=== PATIENT | female | born 1965 | race Caucasian/White ===

== ENCOUNTER → 2018-11-03 | Outpatient (CLI) | payer OTHER ==
--- NOTE | 2018-11-03 09:52 | PCVCIMAG ---
APPROVED REPORT Study performed: 11/03/2018 08:52:28 EXAM: Comprehensive 2D, Doppler, and color-flow Echocardiogram Patient Location: Echo lab Room #: 2Status: routine BSA: 2.02 HR: 64 bpmBP: 126/74 mmHg Rhythm: NSR Other Information Study Quality: Good Risk Factors: Cardiac Risk Factors: HTN Indications Cardiomyopathy Hypertension/HDD NICM,LUPUS 2D Dimensions IVSd: 8.62 (7-11mm)LVOT Diam: 22.22 (18-24mm) LVDd: 63.59 mm PWd: 8.77 (7-11mm)Ascending Ao: 29.37 (22-36mm) LVDs: 55.01 (25-40mm) Left Atrium: 37.18 (27-40mm) Aortic Root: 25.73 mm LV Single Plane 4CH: 33.90 % LV Single Plane 2CH: 32.52 % Biplane EF: 35.0 % Volumes Left Atrial Volume (Systole) Single Plane 4CH: 128.39 mLSingle Plane 2CH: 79.33 mL Biplane LA Volume: 111.00 mLLA ESV Index: 55.00 mL/m2 Aortic Valve AoV Peak Saúl.: 1.19 m/s AO Peak Gr.: 5.65 mmHgLVOT Max P.58 mmHg LVOT Max V: 0.63 m/s TESHA Vmax: 2.05 cm2 Mitral Valve E/A Ratio: 3.0 MV Decel. Time: 152.62 ms MV E Max Saúl.: 1.08 m/s MV A Saúl.: 0.36 m/s IVRT: 131.49 ms TDI E/Lateral E': 15.43E/Medial E': 15.43 Medial E' Saúl.: 0.07 m/s Lateral E' Saúl.: 0.07 m/s Pulmonary Valve PV Peak Saúl.: 0.78 m/sPV Peak Gr.: 2.46 mmHg Tricuspid Valve TR Peak Saúl.: 2.06 m/s TR Peak Gr.: 16.98 mmHg TV Vmax: 0.57 m/sPA Pressure: 24.00 mmHg Left Ventricle The left ventricle is normal size. There is normal left ventricular wall thickness. Left ventricular systolic function is moderate to severely decreased. LVEF is 35-40%. Grade III - reversible restrictive diastolic dysfunction. Right Ventricle The right ventricle is normal size. The right ventricular systolic function is normal. Atria Left atrium is severely dilated. The right atrium size is normal. Aortic Valve Aortic valve is trileaflet. The aortic valve is normal in structure. No aortic regurgitation is present. There is no aortic valvular stenosis. Mitral Valve The mitral valve is normal in structure. Mild to moderate mitral regurgitation. No evidence of mitral valve stenosis. Tricuspid Valve The tricuspid valve is normal in structure. Mild tricuspid regurgitation. Pulmonic Valve The pulmonary valve is normal in structure. Mild pulmonic regurgitation. Great Vessels The aortic root is normal in size. The ascending aorta is normal in size. Aortic arch is normal in caliber. IVC is normal in size and collapses >50% with inspiration. Pericardium There is no pericardial effusion. There is no pleural effusion. <Conclusion> The left ventricle is normal size. There is normal left ventricular wall thickness. LVEF is 35-40%. Grade III - reversible restrictive diastolic dysfunction. The right ventricle is normal size. Left atrium is severely dilated. The right atrium size is normal. The aortic valve is normal in structure. Mild to moderate mitral regurgitation. Mild tricuspid regurgitation.
== END | disposition home or self-care (01) ==
LOC: PCVCIMAG 08:42
PROVIDERS: ATTEND Internal Medicine Cardiovascular Disease
DX: I08.1 Rheumatic disorders of both mitral and tricuspid valves (principal); I10 Essential (primary) hypertension; I42.9 Cardiomyopathy, unspecified
CPT/HCPCS: 93306

== ENCOUNTER → 2019-07-05 | Outpatient (CLI) | payer OTHER ==
--- NOTE | 2019-07-05 16:03 | PCVCIMAG ---
APPROVED REPORT Study performed: 07/05/2019 14:38:02 EXAM: Comprehensive 2D, Doppler, and color-flow Echocardiogram Patient Location: Echo lab Status: routine BSA: 2.00 HR: 82 bpmBP: 124/76 mmHg Rhythm: NSR Other Information Study Quality: Adequate Risk Factors: Cardiac Risk Factors: HTN Indications Dyspnea nonischemic cardiomyopathy 2D Dimensions IVSd: 11.18 (7-11mm) LVDd: 64.03 mm PWd: 9.15 (7-11mm)Ascending Ao: 32.29 (22-36mm) LVDs: 53.71 (25-40mm) Left Atrium: 45.60 (27-40mm) Aortic Root: 29.82 mm LV Single Plane 4CH: 35.68 % LV Single Plane 2CH: 29.02 % Biplane EF: 32.9 % Volumes Left Atrial Volume (Systole) Single Plane 4CH: 103.69 mLSingle Plane 2CH: 124.19 mL LA ESV Index: 61.00 mL/m2 Aortic Valve AoV Peak Saúl.: 1.32 m/s AO Peak Gr.: 6.94 mmHgLVOT Max P.28 mmHg LVOT Max V: 0.91 m/s Mitral Valve E/A Ratio: 2.2 MV Decel. Time: 122.89 ms MV E Max Saúl.: 0.95 m/s MV A Saúl.: 0.44 m/s IVRT: 62.28 ms Pulmonary Valve PV Peak Saúl.: 1.10 m/sPV Peak Gr.: 4.83 mmHg Pulmonary Vein P Vein S: 0.53 m/s P Vein D: 0.83 m/s P Vein S/D Ratio: 0.64 Tricuspid Valve TR Peak Saúl.: 3.09 m/s TR Peak Gr.: 38.25 mmHg Left Ventricle Left ventricle is mildly dilated. There is normal LV segmental wall motion. There is normal left ventricular wall thickness. Left ventricular systolic function is moderately decreased. LVEF is 35%. Grade II - pseudonormal filling dynamics. Right Ventricle The right ventricle is normal size. The right ventricular systolic function is normal. Atria Left atrium is severely dilated. The right atrium size is normal. Aortic Valve The aortic valve is normal in structure. No aortic regurgitation is present. There is no aortic valvular stenosis. Mitral Valve The mitral valve is normal in structure. Mild to moderate eccentric mitral regurgitation. No evidence of mitral valve stenosis. Tricuspid Valve The tricuspid valve is normal in structure. Mild tricuspid regurgitation with PAP of 45 mmHg. Pulmonic Valve The pulmonary valve is normal in structure. Mild pulmonic regurgitation. Great Vessels The aortic root is normal in size. IVC is normal in size and collapses >50% with inspiration. Pericardium There is no pericardial effusion. <Conclusion> Left ventricle is mildly dilated. There is normal left ventricular wall thickness. Left ventricular systolic function is moderately decreased. LVEF is 35%. Grade II - pseudonormal filling dynamics. The right ventricle is normal size. Left atrium is severely dilated. The aortic valve is normal in structure. Mild to moderate eccentric mitral regurgitation. Mild tricuspid regurgitation with PAP of 45 mmHg.
== END | disposition home or self-care (01) ==
LOC: PCVCIMAG 14:59
PROVIDERS: ATTEND Internal Medicine Cardiovascular Disease
DX: I08.8 Other rheumatic multiple valve diseases (principal); I11.9 Hypertensive heart disease without heart failure; E78.5 Hyperlipidemia, unspecified
CPT/HCPCS: 93306